=== PATIENT | male | born 1940 | race Caucasian/White ===

== ENCOUNTER → 2017-03-26 | Outpatient (CLI) | payer MEDICARE, BC ==
[~2017-03-26] MED LIST: COUMADIN 2MG2 MG/TAB PO; COUMADIN 5MG5 MG/TAB PO; DECADRON 4MG TAB4 MG PO; LOVENOX150 MG/ML SQ; MULTIPLE VITAMI1 CAP PO; NO HOME MEDICATIONS; NONI PO; PRILOSEC 20MG20 MG PO; THE MEDICINE S200 M2 PO; VITAMIN C500 MG PO; VITAMIND3 5000; ZOFRAN8 MG PO
== END ==
LOC: COL.RAD 12:55
DX: Z85.72 Personal history of non-Hodgkin lymphomas (principal); Z86.711 Personal history of pulmonary embolism; N40.0 Benign prostatic hyperplasia without lower urinary tract symptoms; K44.9 Diaphragmatic hernia without obstruction or gangrene; R91.8 Other nonspecific abnormal finding of lung field
CPT/HCPCS: Q9967

== ENCOUNTER 2018-01-16 08:19 | Emergency (ER) | payer MEDICARE, BC ==
[~2018-01-16] VITALS: Ht 185.4 cm; Wt 86.4 kg
[2018-01-16 08:27] VITALS: BP 172/93; TEMP 97.8
[2018-01-16 08:57] LABS: BASO # 0.1 (0.0-0.2); EOS # 0.2 (0.0-0.7); EOS % 4.1 % (0-4.0); GRAN % 61.4 % (42.2-75.2); HEMOGLOBIN 14.6 g/dl (13.5-18.0); LYMPH # 1.2 (1.2-3.4); LYMPH % 23.5 % (20.0-51.0); MEAN CELL VOLUME 88 fl (80.0-100.0); MEAN CORPUSCULAR HEMOGLOBIN 31 pg (27.0-31.0); MEAN CORPUSCULAR HGB CONC 35 g/dl (33.0-37.0); MEAN PLATELET VOLUME 10.1 fl (7.4-10.4); MONO # 0.5 (0.1-0.6); MONO % 9.8 % (1.7-9.3); PLATELET COUNT 170 K/mm3 (130-400); RED BLOOD COUNT 4.76 M/mm3 (4.20-5.60); REDCELL DISTRIBUTION WIDTH-CV 13.2 % (11.5-14.5)
[2018-01-16 09:08] LABS: CALCIUM 9.3 mg/dL (8.4-10.2); CREATININE, serum 1.33 mg/dL (0.66-1.25); POTASSIUM 4.6 mmol/L (3.4-5.0)
[2018-01-16] MEDS ORDERED: LIDODERM 5% PATC1 EA TP (09:40)
[2018-01-16 10:05] VITALS: PULSE 48
== END 2018-01-16 10:06 | disposition home or self-care (01) ==
LOC: COL.ER 08:19
PROVIDERS: Emergency Medicine
DX: M54.32 Sciatica, left side (principal)

== ENCOUNTER → 2018-02-12 | Outpatient (CLI) | payer MEDICARE, BC ==
[~2018-02-12] VITALS: Ht 185.4 cm; Wt 86.5 kg
[~2018-02-12] MED LIST changes: +LIDODERM 5% PATC1 EA TP
[2018-02-12 13:39] VITALS: BP 174/94; PULSE 62
[2018-02-12 14:08] VITALS: BP 156/98; PULSE 65
== END ==
LOC: COL.RAD 12:45
DX: M51.9 Unspecified thoracic, thoracolumbar and lumbosacral intervertebral disc disorder (principal)
CPT/HCPCS: J3301

== ENCOUNTER → 2018-03-01 | Outpatient (CLI) | payer MEDICARE, BC ==
[~2018-03-01] VITALS: Ht 185.4 cm; Wt 85.0 kg
[2018-03-01 12:27] VITALS: BP 156/110; PULSE 65
[2018-03-01 14:55] VITALS: BP 148/98; PULSE 75
== END ==
LOC: COL.RAD 12:15
DX: M51.36 Other intervertebral disc degeneration, lumbar region (principal)
CPT/HCPCS: J3301

== ENCOUNTER 2020-05-21 13:59 | Emergency (ER) | payer MEDICARE, BC ==
[~2020-05-21] VITALS: Ht 185.4 cm; Wt 84.1 kg
[~2020-05-21 13:59] MED LIST changes: +ADVIL200 MG PO; +LOVENOX 8080 MG/0.8 SQ; +TYLENOL 500MG500 MG PO
[2020-05-21 14:41] LABS: BASO % 0.8 % (0.0-2.0); EOS # 0.1 (0.0-0.7); EOS % 3.4 % (0-4.0); GRAN % 52.4 % (42.2-75.2); HEMATOCRIT 42.8 % (42.0-52.0); HEMOGLOBIN 14.4 g/dl (13.5-18.0); LYMPH # 1.2 (1.2-3.4); LYMPH % 30.7 % (20.0-51.0); MEAN CELL VOLUME 89 fl (80.0-100.0); MEAN CORPUSCULAR HEMOGLOBIN 30 pg (27.0-31.0); MEAN CORPUSCULAR HGB CONC 34 g/dl (33.0-37.0); MONO # 0.5 (0.1-0.6); MONO % 12.4 % (1.7-9.3); PLATELET COUNT 174 K/mm3 (130-400); RED BLOOD COUNT 4.82 M/mm3 (4.20-5.60); REDCELL DISTRIBUTION WIDTH-CV 14.5 % (11.5-14.5)
[2020-05-21 14:50] LABS: INR 1.7 (0.8-3.0); PROTHROMBIN TIME 19.3 SECONDS (9.7-12.8)
[2020-05-21 14:53] LABS: ALBUMIN 4.2 gm/dL (3.5-5.0); BILIRUBIN,TOTAL 0.6 mg/dL (0.0-1.0); CREATININE, serum 1.42 (0.66-1.25); POTASSIUM 4.2 mmol/L (3.4-5.0); TOTAL PROTEIN 7.2 gm/dL (6.4-8.2)
[2020-05-21 14:58] LABS: C-REACTIVE PROTEIN 0.5 mg/dL (0.0-0.9)
[2020-05-21] MEDS ORDERED: PREDNISONE10 MG PO (15:30)
[2020-05-21 15:55] VITALS: BP 150/93; PULSE 72; TEMP 97.8
== END 2020-05-21 15:45 | disposition home or self-care (01) ==
LOC: COL.ER 13:59
PROVIDERS: Family Medicine
DX: L25.9 Unspecified contact dermatitis, unspecified cause (principal); Z86.711 Personal history of pulmonary embolism; Z86.718 Personal history of other venous thrombosis and embolism; Z79.01 Long term (current) use of anticoagulants

== ENCOUNTER 2023-11-24 15:21 | Inpatient (IN) | payer MEDICARE, BC ==
[~2023-11-24] VITALS: Ht 185.4 cm; Wt 86.8 kg
--- NOTE | 2023-11-24 | NUR ---
CALL PLACED TO HOSPITALIST. PATIENT REMAINS HYPERTENSIVE 179 SYSTOLIC. TORB FOR PRN IV HYDRALAZINE GIVEN.
[~2023-11-24 15:21] MED LIST changes: +PREDNISONE10 MG PO
[2023-11-24 16:18] LABS: BASO # 0.1 K/mm3 (0.0-0.2); BASO % 0.9 % (0.0-2.0); EOS # 0.3 K/mm3 (0.0-0.7); EOS % 4.4 % (0.0-4.0); GRAN # 3.4 K/mm3 (1.4-6.5); GRAN % 60.6 % (42.2-75.2); HEMATOCRIT 42.3 % (42.0-52.0); HEMOGLOBIN 14.9 g/dl (13.5-18.0); LYMPH # 1.4 K/mm3 (1.2-3.4); LYMPH % 24.3 % (20.0-51.0); MEAN CELL VOLUME 88 fl (80.0-100.0); MEAN CORPUSCULAR HEMOGLOBIN 31 pg (27-31); MEAN CORPUSCULAR HGB CONC 35 g/dl (33.0-37.0); MEAN PLATELET VOLUME 11.1 fl (7.4-10.4); MONO # 0.6 K/mm3 (0.1-0.6); MONO % 9.8 % (1.7-9.3); PLATELET COUNT 205 K/mm3 (130-400); RED BLOOD COUNT 4.79 M/mm3 (4.20-5.60)
[2023-11-24 16:22] LABS: INR 3.3 (0.8-3.0); PROTHROMBIN TIME 34.5 SECONDS (9.7-12.8)
[2023-11-24 16:31] LABS: ALBUMIN 3.9 g/dL (3.4-4.8); BILIRUBIN,TOTAL 0.5 mg/dL (0.2-1.2); CALCIUM 9.5 mg/dL (8.4-10.2); CREATININE, serum 1.38 mg/dL (0.72-1.25); TOTAL PROTEIN 8.3 g/dl (6.2-8.1)
[2023-11-24] MEDS ORDERED: NS 100 ML IV SCH (16:44)
[2023-11-24] MEDS ORDERED: Iohexol 300 - 100 ML VIAL IV ONE (16:44)
[2023-11-24] MEDS ORDERED: Docusate Sodium 100 MG CAP PO PRN (19:00)
[2023-11-24] MEDS ORDERED: Ondansetron 4 MG/2 ML VIAL IV PRN (19:00)
[2023-11-24] MEDS ORDERED: Polyethylene Glycol 3350 17 GM PDS PO PRN (19:00)
[2023-11-24] MEDS ORDERED: Acetaminophen 325 MG TAB PO PRN (19:00)
[2023-11-24] MEDS ORDERED: LR 1,000 ML IV SCH (19:15)
[2023-11-24 20:00] VITALS: BP 163/97; PULSE 68
[2023-11-24 20:26] VITALS: BP 185/90; PULSE 56; TEMP 98
--- NOTE | 2023-11-24 20:30 | NUR ---
RECEIVED REPORT FROM MIREILLE CONNER-ED.
[2023-11-24 20:48] VITALS: BP 185/90; PULSE 56; TEMP 98
--- NOTE | 2023-11-24 20:48 | NUR ---
PATIENT ADMITTED TO ROOM 314. VS ARE: 185/90BP, 96% O2 ON RA, 56 PULSE AND 18 RR. PATIENT IS AXO X 4. ORIENTED TO ROOM. MED REC COMPLETE AND ASSESSMENT COMPLETE.
[2023-11-24 21:00] VITALS: BP_SYST 179
[2023-11-24] MEDS ORDERED: Atorvastatin 80 MG TAB PO SCH (21:00)
[2023-11-24] MEDS ORDERED: Famotidine 20 MG TAB PO SCH (21:00)
[2023-11-24] MEDS ORDERED: hydrALAZINE 20 MG/ML 1 ML VIAL IV PRN (22:45)
[2023-11-24 22:46] VITALS: BP 179/89; PULSE 58
--- NOTE | 2023-11-24 22:48 | NUR ---
PATIENT REMAINS HYPERTENSIVE-179 SYSTOLIC. CALL PLACED TO HOSPITALISTBERNARD. ASHLEE FOR PRN IV HYDRALAZINE GIVEN.
[2023-11-24 23:30] VITALS: BP 173/88; PULSE 60; TEMP 97.6
[2023-11-25] VITALS (13 sets, daily range): BP systolic 129–175; BP diastolic 65–87; PULSE 51–82; TEMP 97.6–98.2
--- NOTE | 2023-11-25 04:49 | NUR ---
PATIENT SLEPT SOUNDLY. NEURO CHECKS WNL, STROKE SCALE 0. NPO SINCE MIDNIGHT PENDING CARDIOLOGY CONSULT. LR RUNNING AT 100ML/HR
[2023-11-25 06:23] LABS: BASO % 0.6 % (0.0-2.0); EOS # 0.2 K/mm3 (0.0-0.7); EOS % 3.2 % (0.0-4.0); GRAN # 2.9 K/mm3 (1.4-6.5); HEMATOCRIT 39.1 % (42.0-52.0); HEMOGLOBIN 13.6 g/dl (13.5-18.0); LYMPH # 1.2 K/mm3 (1.2-3.4); LYMPH % 25.7 % (20.0-51.0); MEAN CELL VOLUME 88 fl (80.0-100.0); MEAN CORPUSCULAR HEMOGLOBIN 31 pg (27-31); MEAN CORPUSCULAR HGB CONC 35 g/dl (33.0-37.0); MEAN PLATELET VOLUME 10.6 fl (7.4-10.4); MONO # 0.4 K/mm3 (0.1-0.6); MONO % 9.3 % (1.7-9.3); PLATELET COUNT 177 K/mm3 (130-400); RED BLOOD COUNT 4.46 M/mm3 (4.20-5.60); REDCELL DISTRIBUTION WIDTH-CV 14.1 % (11.5-14.5)
[2023-11-25 06:35] LABS: CALCIUM 9.5 mg/dL (8.4-10.2); CREATININE, serum 1.15 mg/dL (0.72-1.25); POTASSIUM 4.1 mEq/L (3.5-4.5)
[2023-11-25 06:54] LABS: INR 3.2 (0.8-3.0); PROTHROMBIN TIME 33.5 SECONDS (9.7-12.8)
[2023-11-25 06:58] LABS: THYROID STIMULATING HORMONE 2.326 uIU/mL (0.350-4.940)
--- NOTE | 2023-11-25 09:10 | NUR ---
PATIENT SITTING UP IN BED. ALERT AND ORIENTED. REMAINS NPO. PATIENT DENIES NEEDS OR CONCERNS AT THIS TIME.
[2023-11-25 09:32] LABS: CHOLESTEROL RISK RATIO 6.8
--- NOTE | 2023-11-25 10:09 | NUR ---
Initial visit; Patient thanked Construction Equipment Technician for looking in on him and offering God's blessings. Construction Equipment Technician wished him God's blessings.
--- NOTE | 2023-11-25 11:33 | NUR ---
PATIENT DOWN TO MRI VIA WHEELCHAIR. ALERT AND ORIENTED.
[2023-11-25] MEDS ORDERED: COUMADIN 5MG5 MG/TAB PO (12:42)
--- NOTE | 2023-11-25 13:43 | NUR ---
PATIENT DOWN TO EEG VIA WHEELCHAIR. ALERT AND ORIENTED
--- NOTE | 2023-11-25 14:22 | NUR ---
Radioactive Waste Disposal Dispatcher contacted patient's , Adriana (ph#[phone]) to complete initial intake as patient was in a procedure. Patient lives in [place] with Adriana and sees Dr. St at [facility] for primary care. Patient gets his medications from [facility] in on [address] with no difficulties at this time. Adriana advised patient has DPOA-HC designating her. Patient is independent with ADLS and does not use any DME. OT has seen patient and recommend return home. Adriana stated she was hopeful patient could return home tonight but understands he is staying another night. Discharge Plan: Home
--- NOTE | 2023-11-25 15:31 | NUR ---
PATIENT RETURNS FROM EEG AND ECHO. ALERT AND ORIENTED. DENIES NEEDS OR CONCERNS AT THIS TIME.
--- NOTE | 2023-11-25 15:57 | NUR ---
PATIENT REPORTS DIZZINESS AND TINGLING IN HIS LEFT UPPER EXTREMITY. THIS NURSE COMPLETED NEURO ASSESSMENT. NO ABNORMALITIES NOTED. PCT OBTAINED VITAL SIGNS. BP IS ELEVATED, BUT STABLE. BLOOD SUGAR 97. WILL MONITOR
--- NOTE | 2023-11-25 16:03 | NUR ---
DR LEA NOTIFIED OF PATIENT'S EPISODE. NO NEW ORDERS AT THIS TIME.
--- NOTE | 2023-11-25 20:00 | NUR ---
Entered patient room to find patient's trying to give home meds from a bag in her purse. She admitted to one of the meds being Warfarin (Coumadin). Asked that she not give any meds without authorization from pharmacy and written orders from Doctor. Educated patient and family ( , daughter and son) we are awaiting pharmacy to approve Coumadin dosing based on INR levels. Call placed to equine breeder Cosmo to clarify upcoming procedures as family was confused between collaboration with Neurologist. Cosmo stated, "We are only doing a CHALINO tommorow, that is it. Warfarin can be restarted." Family demanded to know why patient hadn't been started on Metoprolol, stated Neurologist said, "She said she prescribes it for her patients sometimes." Educated patient's family that no new orders for such were in place as of now. Visiting hours over, family has left. Questioned family if they were maybe mistaken and meant the equine breeder. Stated "No, it was the neurologist; the really easy to talk to lady." Suggested to family
[2023-11-25] MEDS ORDERED: Warfarin 5 MG TAB PO ONE (23:45)
--- NOTE | 2023-11-25 23:45 | NUR ---
SHIFT ASSESSMENT COMPLETE. PAIIENT DENIES CHEST PAIN AND SOA. NEUROS ARE WNL. PATIENT CONTINUES TO C/O LEG RESTLESSNESS AND JERKING. HE AND HIS FAMILY BELIEVES THAT IT IS D/T INTRODUCTION OF LIPITOR. PATIENT REFUSED 21:00 SCHEDULED LIPITOR. EDUCATION WAS PROVIDED ON THE IMPORTANCE OF LIPID CONTROL IN REGARDS TO TIA. MED PASS COMPLETE CALL LIGHT WITHIN REACH.
[2023-11-26] VITALS (12 sets, daily range): BP systolic 149–164; BP diastolic 71–93; PULSE 56–82; TEMP 97.4–98.1
[2023-11-26 07:08] LABS: BASO % 0.7 % (0.0-2.0); EOS # 0.2 K/mm3 (0.0-0.7); GRAN # 3.4 K/mm3 (1.4-6.5); GRAN % 62.8 % (42.2-75.2); HEMATOCRIT 41.1 % (42.0-52.0); HEMOGLOBIN 14.2 g/dl (13.5-18.0); LYMPH # 1.3 K/mm3 (1.2-3.4); LYMPH % 23.7 % (20.0-51.0); MEAN CELL VOLUME 89 fl (80.0-100.0); MEAN CORPUSCULAR HEMOGLOBIN 31 pg (27-31); MEAN CORPUSCULAR HGB CONC 35 g/dl (33.0-37.0); MEAN PLATELET VOLUME 10.7 fl (7.4-10.4); MONO # 0.5 K/mm3 (0.1-0.6); MONO % 8.6 % (1.7-9.3); PLATELET COUNT 181 K/mm3 (130-400); RED BLOOD COUNT 4.61 M/mm3 (4.20-5.60); REDCELL DISTRIBUTION WIDTH-CV 14.4 % (11.5-14.5)
[2023-11-26 07:17] LABS: INR 2.1 (0.8-3.0); PROTHROMBIN TIME 22.1 SECONDS (9.7-12.8)
[2023-11-26 07:33] LABS: CALCIUM 9.3 mg/dL (8.4-10.2); CREATININE, serum 1.22 mg/dL (0.72-1.25); POTASSIUM 4.2 mEq/L (3.5-4.5)
--- NOTE | 2023-11-26 08:41 | NUR ---
PATIENT SITTING IN CHAIR. ALERT AND ORIENTED. FAMILY AT BEDSIDE. PATIENT HAS BEEN NPO SINCE MIDNIGHT. REQUESTING TO SPEAK TO THE DOCTOR. THIS RN INFORMED PATIENT THE PHSYICIANS ARE MAKING ROUNDS. CALL LIGHT WITHIN REACH.
[2023-11-26] MEDS ORDERED: NS 1,000 ML IV SCH (08:45)
[2023-11-26] MEDS ORDERED: 1/2 NS 1,000 ML IV SCH (11:00)
--- NOTE | 2023-11-26 11:18 | NUR ---
PATIENT ESCORTED TO THORACIC MEDICINE PHYSICIAN FOR CHALINO PROCEDURE. ALERT AND ORIENTED.
[2023-11-26] MEDS ORDERED: Lidocaine PF 2% (20 MG/ML) 5 ML VIAL ONE (11:46)
--- NOTE | 2023-11-26 12:21 | NUR ---
See CHALINO form for pre & post procedure charting. See anesthesia note for intraprocedure charting.
--- NOTE | 2023-11-26 12:35 | NUR ---
Bedside report completed with Trae Woodson. Call light within reach, vitals signs reviewed, fluids at 100 ml/hr, telemetry box in place. Trae RN denies questions concerns at this time. [phone] for questions.
--- NOTE | 2023-11-26 12:48 | NUR ---
PATIENT BACK UP TO THE FLOOR AT APPROX 1230. ALERT AND ORIENTED, TALKING TO STAFF APPROPRIATELY. DENIES PAIN OR DISCOMFORT. VSS. POST OP VS INITIATED.
[2023-11-26] MEDS ORDERED: ZESTRIL 10MG10 MG PO (14:04)
[2023-11-26] MEDS ORDERED: LIPITOR 80MG80 MG PO (14:04)
[2023-11-26] MEDS ORDERED: ASPIRIN E.C. 8181 MG PO (14:04)
--- NOTE | 2023-11-26 14:22 | NUR ---
A P Manager met with patient and his , Adriana to check in. Patient is going to go home today and has no questions or concerns for SW at this time.
--- NOTE | 2023-11-26 15:20 | NUR ---
THIS RN PROVIDED PATIENT WITH DISCHARGE EDUCATION AND INSTRUCTION. ALL QUESTIONS ANSWERED. IV TO RFA DISCONTINUED. NO REDNESS, EDEMA, OR DRAINAGE NOTED.
--- NOTE | 2023-11-26 15:24 | NUR ---
PATIENT ESCORTED OFF UNIT WITH CHARGE NURSE. ALL BELONGINGS WITH PATIENT AND .
[2023-11-26] MEDS ORDERED: Warfarin 5 MG TAB PO SCH (21:00)
== END 2023-11-26 15:20 | disposition home or self-care (01) | DRG 65 ==
LOC: COL.ER 15:21 → MEDICAL 19:44
PROVIDERS: Family Medicine; ADMIT Internal Medicine
DX: I63.9 Cerebral infarction, unspecified (principal); C81.90 Hodgkin lymphoma, unspecified, unspecified site; N17.9 Acute kidney failure, unspecified; R07.9 Chest pain, unspecified; Z86.718 Personal history of other venous thrombosis and embolism; Z79.01 Long term (current) use of anticoagulants; Z86.711 Personal history of pulmonary embolism; I66.29 Occlusion and stenosis of unspecified posterior cerebral artery
CPT/HCPCS: OP; G0378; J0360; J2704; J7120; Q3014; Q9967